=== PATIENT | male | born 1950 | race Hispanic/Latino ===

== ENCOUNTER → 2020-12-15 | Outpatient (CLI) | payer OTHER | END | disposition home or self-care (01) | LOC: RAH 07:43 | PROVIDERS: ATTEND Family Medicine | DX: I71.4 Abdominal aortic aneurysm, without rupture (principal) | CPT/HCPCS: 76775 ==

== ENCOUNTER → 2024-11-15 | Outpatient (CLI) | payer OTHER ==
[~2024-11-15] MED LIST: IOHEXOL 350 MG/ML 100ML INFUS..BTL IV ONE
--- NOTE | 2024-11-15 14:15 | HMCIMG ---
CT ANGIO ABDOMEN REASON: AAA COMPARISON: None TECHNIQUE: Axial images are obtained from lung bases through the iliac crests before and during bolus IV contrast infusion. 2-D and 3-D multiplanar reconstruction images were performed. Contrast line was 100 cc Omnipaque 350. Oral contrast was administered as well. FINDINGS: Angiogram images show marked atherosclerotic changes in the distal abdominal aorta. Proximal aorta is less affected. Renal and mesenteric artery origins are widely patent. There is a distal abdominal aortic aneurysm measuring 3.5 x 4.1 cm axial dimension. There is irregular mural thrombus. The aneurysm extends for approximately 8 cm proximal to distal. Aneurysm is infrarenal and does not extend into the common iliac arteries. There is moderate approximately 50% narrowing of the proximal left common iliac artery. Iliac arteries are otherwise widely patent. Lung bases are clear. There are no focal liver lesions. Spleen and pancreas appear normal. There are bilateral small renal cysts, there is no mass, stone or hydronephrosis. Gallbladder appears unremarkable. Bowel loops appear normal including visualized portions of the appendix. There is no retroperitoneal or pelvic lymphadenopathy. There are no focal fluid collections. There is no free air or fluid. Anterior abdominal wall appears intact, no ventral hernia. There are no focal osseous lesions. IMPRESSION: 1. Infrarenal abdominal aortic aneurysm 3.5 x 4.1 cm, with a moderate amount of irregular mural thrombus. 2. 50% narrowing of the right common iliac artery origin. 3. Otherwise unremarkable CT angiogram of the abdomen and aorta.
== END | disposition home or self-care (01) ==
LOC: RAH 08:55
PROVIDERS: ATTEND Internal Medicine Cardiovascular Disease
DX: I71.43 Infrarenal abdominal aortic aneurysm, without rupture (principal); I71.40 Abdominal aortic aneurysm, without rupture, unspecified; N28.1 Cyst of kidney, acquired; I77.1 Stricture of artery; I21.29 ST elevation (STEMI) myocardial infarction involving other sites
CPT/HCPCS: 74175; Q9967

== ENCOUNTER → 2025-07-18 | Outpatient (CLI) | payer OTHER ==
--- NOTE | 2025-07-19 06:02 | HMCIMG ---
EXAMINATION: ULTRASOUND OF THE ABDOMEN WITH COLOR DOPPLER. CLINICAL HISTORY: Elevated LFT and abdominal aortic aneurysm COMPARISON: CTA abdomen dated 11/15/2024. TECHNIQUE: Real-time grayscale ultrasound images of the abdomen. In addition, color Doppler is medically necessary to perform in order to evaluate vascularity and blood flow. FINDINGS: Liver: Normal in caliber, the right hepatic lobe measures 14.6 cm in the craniocaudal dimension. There is normal echogenicity of the hepatic parenchyma. There is no focal hepatic abnormality or intrahepatic biliary ductal dilatation. There is normal spectral Doppler of the main portal vein. Gallbladder: Within normal limits with normal wall thickness (0.2 cm). No hyperemia or pericholecystic free fluid. There is no cholelithiasis. Common bile duct is normal in caliber, measuring 0.3 cm. Spleen is normal in caliber and measures 8.4 x 2.8 x 3.5 cm in craniocaudal, AP, and transverse dimensions respectively. No focal lesions. Pancreas: Normal in caliber and echotexture. No calcification or dilated pancreatic duct. The kidneys are normal in caliber, the right kidney measures 9.8 x 3.5 x 3.9 cm and the left kidney measures 11.5 x 3.7 x 4.3 cm in craniocaudal, AP, and transverse dimensions respectively. There is normal renal cortical thickness, and cortical echogenicity. There is no renal calculus or hydronephrosis. There are simple cortical cysts that measure 0.4 x 0.4 x 0.5 cm in the mid pole and 0.5 x 0.3 x 0.5 cm in the lower pole of the right kidney. There is a simple cortical cyst that measures 1.7 x 1.9 x 2.9 cm in the upper pole of the left kidney. The proximal and mid aspects of abdominal aorta are normal in caliber measuring 2.1 x 2.2 x 2.5 cm, 2.1 x 2.5 x 2.1 cm. The distal aorta is torturous and dilated, measures 3.5 x 4.0 x 3.6 cm. There is atherosclerosis and protruding plaques in the lumen. The bilateral iliac arteries are normal in caliber and measures 1.1 cm. Visualized aspects of the inferior vena cava are unremarkable. IMPRESSION: Bilateral simple renal cortical cysts. Distal abdominal aortic aneurysm (4.0 cm) with atherosclerosis and plaques. /[place]
== END | disposition home or self-care (01) ==
LOC: RAH 08:06
PROVIDERS: ATTEND Family Medicine
DX: I71.43 Infrarenal abdominal aortic aneurysm, without rupture (principal); N28.1 Cyst of kidney, acquired; R79.89 Other specified abnormal findings of blood chemistry
CPT/HCPCS: 76700